=== PATIENT | male | born 1955 ===

== ENCOUNTER 2020-05-04 06:53 | Outpatient (CLI) | payer MEDICARE ==
--- NOTE | 2020-05-04 07:50 | ULT ---
Abdominal aortic sonogram HISTORY: Aneurysm screening. FINDINGS: Good color and spectral Doppler flow. Proximal abdominal aorta measures up to 2.8 cm diamet er. Mid abdominal aorta 1.8 cm. Lower abdominal aorta 1.7 cm. Each Common iliac artery has a normal appearance. No fluid adjacent to the aorta. IMPRESSION : No evidence of aneurysm.
== END 2020-05-04 06:54 | disposition home or self-care (01) ==
LOC: BICULT 06:53
PROVIDERS: ATTEND Internal Medicine
DX: Z13.6 Encounter for screening for cardiovascular disorders (principal)
CPT/HCPCS: 76775